=== PATIENT | female | born 1970 | race Hispanic/Latino ===

== ENCOUNTER → 2018-11-09 | Outpatient (CLI) | payer BC ==
--- NOTE | 2018-11-09 13:37 | Diagnostic Imaging Report ---
Right knee MRI without contrast. History: Knee pain. Decreased range of motion. Pain not responding to conservative management. Comparison: None. Technique: Multiplanar multi-sequence MRI of the knee without contrast. Findings: Medial compartment: There is an obliquely oriented tear involving the posterior horn of the medial meniscus best seen on coronal image 14 and sagittal image 15. The medial compartmental articular cartilage surfaces are slightly thin. The medial collateral ligament complex is intact. Lateral compartment: No meniscal tear or cartilage abnormality. The LCL complex is normal. Intercondylar notch: The ACL and PCL are intact. Patellofemoral compartment: No chondromalacia or patellar dislocation. Extensor mechanism: The quadriceps and patellar tendons are normal. Other findings: There is a joint effusion and synovitis. There is no acute fracture, subluxation or avascular necrosis. Mild soft tissue edema in the inferior lateral aspect of Hoffa's fat could be due to excessive lateral pressure syndrome. IMPRESSION: Obliquely oriented tear involving the posterior horn of the medial meniscus with mild degenerative arthrosis in the medial compartment of the knee. Mild soft tissue edema in the inferior lateral aspect of Hoffa's fat could be due to excessive lateral pressure syndrome. Signed by: Dr. Rene Thapa M.D. on 11/09/2018 1:34 PM
== END ==
LOC: MRI 09:43
PROVIDERS: ATTEND Specialist
DX: M25.561 Pain in right knee (principal); S83.241A Other tear of medial meniscus, current injury, right knee, initial encounter

== ENCOUNTER → 2019-01-17 | Day surgery (SDC) | payer BC ==
[2018-12-04 10:31] LABS: ANION GAP 9.4 mmol/L (8-16); BLOOD UREA NITROGEN 8 mg/dL (7-26); BUN/CREATININE RATIO 11 (6-25); CALCIUM 8.9 mg/dL (8.4-10.2); CARBON DIOXIDE 27 mmol/L (22-29); CHLORIDE 105 mmol/L (98-107); CREATININE, SERUM 0.72 mg/dL (0.57-1.11); EST GLOMERULAR FILTRATION RATE > 60 ML/MIN (60-); GLUCOSE 87 mg/dL (74-118); POTASSIUM 3.4 mmol/L (3.5-5.1); SODIUM 138 mmol/L (136-145)
[2019-01-16 10:48] LABS: ANION GAP 10.6 mmol/L (8-16); BLOOD UREA NITROGEN 8 mg/dL (7-26); BUN/CREATININE RATIO 11 (6-25); CALCIUM 8.6 mg/dL (8.4-10.2); CARBON DIOXIDE 26 mmol/L (22-29); CHLORIDE 109 mmol/L (98-107); CREATININE, SERUM 0.72 mg/dL (0.57-1.11); EST GLOMERULAR FILTRATION RATE > 60 ML/MIN (60-); GLUCOSE 86 mg/dL (74-118); POTASSIUM 3.6 mmol/L (3.5-5.1); SODIUM 142 mmol/L (136-145)
[~2019-01-17] MED LIST: ADVIL; BUPIVACAINE 0.5%/EPI 30 ML SDV INJ ONE; CEFAZOLIN SOD 1 GM/NS 50ML 100 ML IV ONE; DEXAMETHASONE SOD PHOS INJ 4 MG/ML VIAL ONE; FENTANYL CITRATE/PF 100MCG/2 ML INJ ONE; FIORICET PO; HYDROCHLOROTHIA25 MG PO; LEVOTHYROXINE75 MCG PO; LIDOCAINE HCL 2% LOCAL INJ 5 ML SDV VIAL INJ ONE; MIDAZOLAM HCL 2 MG/2 ML VIAL ONE; ONDANSETRON HCL INJ 2MG/ML 2ML 2 MG/ML VIAL ONE; PROPOFOL IV EMULSION 10 MG/ML 20 ML VIAL ONE; SEVOFLURANE INHAL SOLN 250 ML PEN BTL ONE; vitamin D PO
--- OUTSIDE RECORDS SUMMARY | 2019-01-17 06:52 | XMS REPORT | CCD ---
Author Author Auto Generated Organization [facility] Address Unknown Phone Unavailable Care Team Providers Care Campaign Analyst Name Role Phone Sherine Galaviz RP Allergies, Adverse Reactions, Alerts Substance Reaction Status NKDA Active
--- OUTSIDE RECORDS SUMMARY | 2019-01-17 06:52 | XMS REPORT | CCD ---
Author Author Auto Generated Organization [facility] Address Unknown Phone Unavailable Care Team Providers Care Professor Of Genetics Name Role Phone Sherine Galaviz RP Allergies, Adverse Reactions, Alerts Substance Reaction Status NKDA Active
--- OUTSIDE RECORDS SUMMARY | 2019-01-17 06:52 | XMS REPORT | Summary of Care ---
Author Author [facility] Organization [facility] Address Unknown Phone Unavailable Encounter HQ Encntr_alias(FIN) [id number] Date(s): 10/11/17 - 10/11/17 [facility] [address] [place] [address]- Encounter Diagnosis Encounter for screening mammogram for malignant neoplasm of breast (Final) - Discharge Disposition: Home or Self Care Attending Physician: Shreine Galaviz MD Admitting Physician: Sherine Galaviz MD Referring Physician: Sherine Galaviz MD Vital Signs No data available for this section Problem List No data available for this section Allergies, Adverse Reactions, Alerts Substance Reaction Severity Status NKDA Active Medications No data available for this section Results No data available for this section Immunizations No data available for this section Procedures No data available for this section Social History No data available for this section Assessment and Plan No data available for this section
--- OUTSIDE RECORDS SUMMARY | 2019-01-17 06:52 | XMS REPORT | Summary of Care ---
Author Author [facility] Organization [facility] Address Unknown Phone Unavailable Encounter HQ Encntr_alias(FIN) [id number] Date(s): 10/11/17 - 10/11/17 [facility] [address] [place] [address]- Encounter Diagnosis Encounter for screening mammogram for malignant neoplasm of breast (Final) - 10/12/17 Discharge Disposition: Home or Self Care Attending Physician: Sherine Galaviz MD Admitting Physician: Sherine Galaviz MD [...]
--- OUTSIDE RECORDS SUMMARY | 2019-01-17 06:52 | XMS REPORT | Summary of Care ---
Author Author [facility] Organization [facility] Address Unknown Phone Unavailable Encounter HQ Encntr_aliuriel(CHERI) [id number] Date(s): 07/31/16 - 07/31/16 [facility] [address] [place] [address]- [phone] Discharge Disposition: Home or Self Care Attending Physician: Sherine Galaviz MD Referring Physician: Sherine [...]
--- OUTSIDE RECORDS SUMMARY | 2019-01-17 06:52 | XMS REPORT | Summary of Care ---
Author Organization Unknown Address Unknown Phone Unavailable Encounter HQ Encntr_caroline(CHERI) [id number] Date(s): 07/19/14 - 07/19/14 [facility] [address] Discharge Disposition: Home Physician Attending: Sherine Galaviz MD Physician_Referring: Sherine Galaviz MD Reason for Visit ROUTINE Problem List No data available for this section Allergies, Adverse Reactions, Alerts Substance Reaction Severity Status NKDA Active Medications No data available for this section Medications Administered During Your Visit No data available for this section Immunizations No data available for this section
--- OUTSIDE RECORDS SUMMARY | 2019-01-17 06:52 | XMS REPORT | Continuity of Care Document ---
Author Author [facility] Organization [facility] Address Unknown Phone Unavailable Care Team Providers Care Engineer Technical Staff Name Role Phone [employer] Information [employer] Unavailable Unavailable Problems Problem Status Onset Date Classification Date Reported Comments Source Z12.31 Active 08/29/2018 [facility] Encounter for screening mammogram for malignant neoplasm of breast 10/13/2017 02/16/2018 [facility] SCREENING MAMMO Active 08/24/2017 [facility] DX: ROUTINE SCREENING Active 06/14/2016 [facility] ABD PAIN/GALLSTONES/ELEVATED ALT Active 04/29/2015 [facility] ROUTINE Active 07/17/2014 [facility] MAMMO Active 12/27/2012 [facility] SCREENING Active 12/11/2012 [facility] Medications No Data Provided for This Section Allergies, Adverse Reactions, Alerts No Known Medication Allergies Immunizations No Data Provided for This Section Results No Data Provided for This Section Pathology Reports No Data Provided for This Section Diagnostic Reports Report Value Date Source Breast Mammo Scrn IMKE w adams incl CAD MA BILATERAL DIGITAL SCREENING MAMMOGRAM 3D/2D WITH CAD: 09/15/2018 CLINICAL: /Routine. Current study was evaluated with a Computer Aided Detection (CAD) system. COMPARISON:Comparison is made to exams dated: 10/11/2017 mammogram, 07/31/2016 mammogram, 07/19/2014 mammogram, 12/22/2012 mammogram, 10/22/2011 mammogram, and 10/16/2010 mammogram - [facility]. TECHNIQUE: Digital Breast Tomosynthesis was performed and utilized for Interpretation. [employer] Version 1.3 was utilized for computer aided detection. FINDINGS: The tissue of both breasts is extremely dense. This may lower the sensitivity of mammography. Bilateral saline subpectoral breast implants are noted and imaged with routine and implant displaced views. Bilateral breast implants are stable and intact. No significant masses, calcifications, or other findings are seen in either breast. There has been no significant interval change. IMPRESSION: BENIGN RECOMMENDATION:There is no mammographic evidence of malignancy. A 1 year screening mammogram is recommended.(09/16/2019) This exam was interpreted at [id number] for [facility]. Loyd peng/mariola:09/15/2018 10:13:57 Epidemiologist(s): Tenisha Martinez, [facility] letter sent: BI-RADS 1/2 Dense Mammogram BI-RADS: 2 Benign 09/15/2018 [facility] Pelvis w Pelvis Transvaginal US Clinical Indication: - N92.0 Excessive and frequent menstruation with regular cycle; Comparison: 04/24/2009 US PELVIS Technique: Grayscale, color and Doppler transabdominal and transvaginal imaging of the pelvis was performed with standard technique. Transvaginal technique utilized to better visualize anatomy. FINDINGS: UTERUS: The uterus to measure 7.4 x 4.1 x 5.9 cm in size. Multiple fibroids are noted, one of which abuts the endometrium measuring 2.2 x 1.7 x 2.3 cm. Subserosal fibroid extending into the right adnexa also noted measuring 3.6 x 2.3 x 3.1 cm. ENDOMETRIUM: The endometrial stripe measures 3 mm in thickness. OVARIES: The right ovary is not seen and the left ovary measures 1.4 x 0.8 x 1.3 cm. There is normal ovarian contour and morphology. There are no adnexal masses. The limited Doppler images show normal left ovarian blood flow. OTHER FINDINGS: No free fluid in the pelvic cul-de-sac. IMPRESSION: 1. Fibroid uterus. 2. Nonvisualized right ovary. SL: [id number] 09/15/2018 [facility] Breast Mammo Scrn MIKE incl CAD MA BILATERAL DIGITAL SCREENING MAMMOGRAM WITH CAD: 10/11/2017 CLINICAL: /Routine. Current study was evaluated with a Computer Aided Detection (CAD) system. COMPARISON:Comparison is made to exams dated: 07/31/2016 mammogram, 07/19/2014 mammogram, and 12/22/2012 mammogram - [facility]. TECHNIQUE: Mammographic views were obtained using digital acquisition. [employer] Version 1.3 was utilized for computer aided detection. FINDINGS: The tissue of both breasts is extremely dense. This may lower the sensitivity of mammography. Bilateral saline subpectoral breast implants are noted and imaged with routine and implant displaced views. Bilateral breast implants are stable and intact. No significant masses, calcifications, or other findings are seen in either breast. There has been no significant interval change. IMPRESSION: BENIGN RECOMMENDATION:There is no mammographic evidence of malignancy. A 1 year screening mammogram is recommended.(10/12/2018) This exam was interpreted at [id number] for [facility]. SUMMARY: As the patient has extremely dense breast parenchyma, this could obscure additional abnormalities. The patient would likely benefit from a supplemental screening test such as bilateral ultrasound. This should be discussed with the patient by the referring physician. Loyd peng/penrad:10/11/2017 08:46:50 Epidemiologist(s): Mariel Obrien, [facility] letter sent: BI-RADS 1/2 Dense Mammogram BI-RADS: 2 Benign 10/11/2017 [facility] Breast Mammo Scrn MIKE incl CAD MA - BREAST MAMMO SCRN MIKE INCL CAD MA BILATERAL DIGITAL SCREENING MAMMOGRAM WITH CAD: 07/31/2016 CLINICAL: Routine. Current study was evaluated with a Computer Aided Detection (CAD) system. Comparison is made to exams dated: 07/19/2014 mammogram, 12/22/2012 mammogram, 10/22/2011 mammogram and 10/16/2010 mammogram - [facility]. The tissue of both breasts is heterogeneously dense, which could obscure detection of small masses. Bilateral saline subpectoral breast implants are noted and imaged with routine and implant displaced views. Bilateral breast implants are stable and intact. No significant masses, calcifications, or other findings are seen in either breast. There has been no significant interval change. IMPRESSION: BENIGN There is no mammographic evidence of malignancy. A 1 year screening mammogram is recommended. Loyd peng/penrad:08/02/2016 07:55:11 Epidemiologist: Mariel Obrien, [facility] This exam was dictated and interpreted by [id number] for [facility]. letter sent: Normal Henda Mammogram BI-RADS: 2 Benign 07/31/2016 [facility] Digital Mammo Screening Mike MA - DIGITAL MAMMO SCREENING MIKE MA BILATERAL DIGITAL SCREENING MAMMOGRAM WITH CAD: 07/19/2014 CLINICAL: Routine. Current study was evaluated with a Computer Aided Detection (CAD) system. Comparison is made to exams dated: 12/22/2012 mammogram, 10/16/2010 mammogram and 10/22/2011 mammogram - [facility]. The tissue of both breasts is heterogeneously dense, which could obscure detection of small masses. Bilateral saline subpectoral breast implants are noted and imaged with routine and implant displaced views. Bilateral breast implants are stable and intact. No significant masses, calcifications, or other findings are seen in either breast. There has been no significant interval change. IMPRESSION: BENIGN There is no mammographic evidence of malignancy. A screening mammogram in one year is recommended. Loyd peng/penrad:07/22/2014 07:59:18 Epidemiologist: Kalie Ochoa, [facility] This exam was dictated and interpreted by [id number] for [facility]. letter sent: Normal exam Mammogram BI-RADS: 2 Benign 07/19/2014 [facility] Digital Mammo Screening Mike MA - DIGITAL MAMMO SCREENING MIKE MA BILATERAL DIGITAL SCREENING MAMMOGRAM WITH CAD: 12/22/2012 CLINICAL: Routine. Current study was evaluated with a Computer Aided Detection (CAD) system. Comparison is made to exams dated: 10/22/2011 mammogram and 10/16/2010 mammogram - [facility]. Current study contains 11 films. The tissue of both breasts is extremely dense, which lowers the sensitivity of mammography. Bilateral saline implants are stable and intact and have a smooth contour with continuous reyes. Implants may obscure breast parenchyma, making mammographic interpretation difficult. No significant masses, calcifications, or other findings are seen in either breast. IMPRESSION: BENIGN There is no mammographic evidence of malignancy. A screening mammogram in one year is recommended. Ha love/penrad:01/03/2013 09:03:38 Epidemiologist: Vero Santacruz, [facility] letter sent: Normal Henda Mammogram BI-RADS: 2 Benign 12/22/2012 [facility] Consultation Notes No Data Provided for This Section Discharge Summaries No Data Provided for This Section History and Physicals No Data Provided for This Section Vital Signs No Data Provided for This Section Encounters Location Location Details Encounter Type Encounter Number Reason For Visit Attending Provider ADM Date DC Date Status Source [facility] Outpatient [id number] ROUTINE FERHAT HASAN 10/22/2011 Active [facility] [id number] SCREENING FERHAT HASAN 12/22/2012 Active [facility] [id number] EDMAR OAKES HASLEE 01/03/2013 Active [facility] Outpatient [id number] Lylemarixa Haslee 07/19/2014 07/20/2014 [facility] Outpatient [id number] Sherine Haslee 07/31/2016 08/01/2016 [facility] Outpatient [id number] Mario Albertoabhi Haslee 10/11/2017 10/12/2017 [facility] Outpatient [id number] Sherine Haslee 09/15/2018 09/16/2018 [facility] Procedures No Data Provided for This Section Assessment and Plan No Data Provided for This Section Plan of Care No Data Provided for This Section Social History Social History Date Source No data available for this section 09/16/2018 [facility] Family History No Data Provided for This Section Advance Directives No Data Provided for This Section Functional Status No Data Provided for This Section
--- OUTSIDE RECORDS SUMMARY | 2019-01-17 06:52 | XMS REPORT ---
[facility] Address Unknown Phone Unavailable Care Team Providers Care Tank Erector Name Role Phone UMA PRITCHARD Unavailable Unavailable Problems This patient has no known problems. Allergies, Adverse Reactions, Alerts This patient has no known allergies or adverse reactions. Medications This patient has no known medications. Results Test Description Test Time Test Comments Text Results Atomic Results Result Comments MRI RIGHT KNEE WO 2018-11-09 13:31:00 [place] [address] Patient Name: BRENDA MILNER MR #: [id number] : 1970 Age/Sex: 48/F Req #: [id number] [facility] Physician: Ordered by: UMA PRITCHARD MD Report #: [id number] Location: MRI Room/Bed: Procedure: [id number] MRI/MRI RIGHT KNEE WO Exam Date: Exam Time: REPORT STATUS: Signed Right knee MRI without contrast. History: Knee pain. Decreased ra nge of motion. Pain not responding to conservative management. Comparison: None. Technique: Multiplanar multi-sequence MRI of the knee without contrast. Findings: Medial compartment: There is an obliquely oriented tear involving the posterior horn of the medial meniscus best seen on coronal image 14 and sagittal image 15. The medial compartmental articular cartilage surfaces are slightly thin. The medial collateral ligament complex is intact. Lateral compartment: No meniscal tear or cartilage abnormality. The LCL complex is normal. Intercondylar notch: The ACL and PCL are intact. Patellofemoral compartment: No chondromalacia or patellar dislocation. Extensor mechanism: The quadriceps and patellar tendons are normal. Other findings: There is a joint effusion and synovitis. There is no acute fracture, subluxation or avascular necrosis. Mild soft tissue edema in the inferior lateral aspect of Hoffa's fat could be due to excessive lateral pressure syndrome. IMPRESSION: Obliquely oriented tear involving the posterior horn of the medial meniscus with mild degenerative arthrosis in the medial compartment of the knee. Mild soft tissue edema in the inferior lateral aspect of Hoffa's fat could be due to excessive lateral pressure syndrome. Signed by: Dr. Rene Thapa M.D. on 11/09/2018 1:34 PM Dictated By: RENE THAPA MD, MD 1332 Transcribed By: CARL on 11/09/18 1330 COPY TO: UMA PRITCHARD MD
--- OUTSIDE RECORDS SUMMARY | 2019-01-17 06:52 | XMS REPORT | Summary of Care ---
Author Author [facility] Organization [facility] Address Unknown Phone Unavailable Encounter HQ Encntr_alias(FIN) [id number] Date(s): 09/15/18 - 09/15/18 [facility] [address] [place] [address]- Discharge Disposition: Home or Self Care Attending [...]
[2019-01-17 10:20] VITALS: BP 129/82
--- NOTE | 2019-01-18 20:05 | Operative Report ---
DATE OF PROCEDURE: 01/17/2019 SURGEON: Beni Ellington MD PREOPERATIVE DIAGNOSES: Right knee medial meniscus tear, right knee degenerative joint disease. POSTOPERATIVE DIAGNOSES: Right knee medial meniscus tear, right knee degenerative joint disease. OPERATIONS AND PROCEDURES PERFORMED: The patient underwent right knee examination under anesthesia, right knee arthroscopy, right knee partial medial meniscectomy, right knee chondroplasty of the medial femoral condyle, medial tibial plateau, lateral femoral condyle and lateral tibial plateau. REGISTERED NURSE CARDIAC TELEMETRY: STORMY Burt. ANESTHESIA: General endotracheal intubation anesthesia. IV FLUIDS: Per the anesthesia record. BRIEF DESCRIPTION OF THE PATIENT'S OPERATIVE PROCEDURE: Ms. Pizarro is taken to the operating room, placed in supine position on the operating table. Following induction of general anesthesia as well as endotracheal intubation, the patient's right lower extremity was examined under anesthesia. She was found to have a mild effusion within the joint but otherwise ligamentously stable knee. The patient's lower extremity was prepped and draped in standard surgical fashion. A two-port technique used to provide this patient arthroscopic evaluation of the knee joint. Examination of suprapatellar pouch and medial lateral gutters found no evidence of loose bodies. The scope was advanced to the medial compartment. Examination of the medial compartment demonstrated a torn undersurface tear of the posterior horn of the medial meniscus. This was in the avascular zone of the meniscus. There was also chondromalacia of the articulating surfaces. A combination of biting forceps and a motorized shaver were used to resect the torn portion of the meniscus. Chondroplasties of the medial femoral condyle and medial tibial plateau performed at this time. The scope was advanced to the intercondylar notch and the anterior cruciate ligament was identified and found to be intact. Scope was advanced to lateral compartment and chondromalacia of the lateral femoral condyle, lateral tibial plateau were identified. Chondroplasties of the lateral tibial plateau and lateral femoral condyle were performed at this time. The knee was then deflated with sterile normal saline. Each of the portal site was closed using 4-0 nylon suture. The portal sites as well as knee itself were injected with 0.5% Marcaine with epinephrine. Sterile dressings were applied and the patient was awakened and taken to the postanesthesia care unit in stable condition. Vianey Peterson acted as acute care assistant for this case and was necessary for prepping and draping the patient as well as positioning the leg during the surgery and the closure of the wound to allow this case to be successful. MD ABHINAV Watson/YAAN /[id number]
== END | disposition home or self-care (01) ==
LOC: OR 06:47
PROVIDERS: ATTEND Specialist
DX: S83.241A Other tear of medial meniscus, current injury, right knee, initial encounter (principal); M17.11 Unilateral primary osteoarthritis, right knee; M94.261 Chondromalacia, right knee; G43.909 Migraine, unspecified, not intractable, without status migrainosus; E03.9 Hypothyroidism, unspecified; F17.200 Nicotine dependence, unspecified, uncomplicated; X58.XXXA Exposure to other specified factors, initial encounter; Z01.812 Encounter for preprocedural laboratory examination
CPT/HCPCS: 29881; 36415 ×2; 80048 ×2; 81025; J0690; J1100; J2001; J2250; J2405; J2704; J3010